=== PATIENT | female | born 1980 ===

== ENCOUNTER 2016-07-01 20:43 | Emergency (ER) | payer OTHER ==
[2016-07-01 21:01] VITALS: BP 117/78
[2016-07-01] MEDS ORDERED: Cephalexin CAP* 500 MG PO ONE (21:31)
--- NOTE | 2016-07-01 21:45 | UC ---
Skin Complaint HPI - HPI Summary HPI Summary: LEFT FOREHEAD ABOVE EYEBROW, HAD PIMPLE THAT POPPED FOUR DAYS AGO. SINCE THAT TIME HAS HAD REDNESS IN LEFT FOREHEAD WITH PURULENT DRAINAGE AT PIMPLE SITE WELL SWELLING TO LOWER EYELID. NO PAIN WITH EYE MOVEMENT. NO DISCHARGE. NO FEVER. - History of Current Complaint Chief Complaint: UCSkin Time Seen by Provider: 07/01/16 21:10 Stated Complaint: SORE ABOVE LEFT EYE Hx Obtained From: Patient Hx Last Menstrual Period: 06/30/16 Onset/Duration: Gradual Onset, Lasting Days, Still Present Skin Exposure Onset/Duration: Days Ago Onset Severity: Moderate Current Severity: Moderate Location: Discrete - LEFT FOREHEAD Character: Swelling, Redness Aggravating: Nothing Alleviating: Nothing Associated Signs & Symptoms: Positive: Drainage, Tenderness, Red Streaks. Negative: Fever, Chills, Cough, Rash Related History: Trauma - Allergy/Home Medications Allergies/Adverse Reactions: Allergies Allergy/AdvReac Type Severity Reaction Status Date / Time No Known Allergies Allergy Verified 07/01/16 20:53 Home Medications: Home Medications Copper (Iud) [Paragard IUD] 1 unit IU 07/01/16 [History] Review of Systems Constitutional: Negative Skin: Other - SWELLING REDNESS TO LEFT FOREHEAD 3CM X 3CM Eyes: Negative ENT: Negative Respiratory: Negative Cardiovascular: Negative Gastrointestinal: Negative Genitourinary: Negative Motor: Negative Neurovascular: Negative Musculoskeletal: Negative Neurological: Negative Psychological: Negative All Other Systems Reviewed And Are Negative: Yes PMH/Surg Hx/FS Hx/Imm Hx Previously Healthy: Yes - Surgical History Surgical History: Yes Surgery Procedure, Year, and Place: T&A - Family History Known Family History: Negative: Diabetes, Blood Disorder - Social History Occupation: Employed Full-time Lives: With Family Alcohol Use: Occasionally Substance Use Type: None Smoking Status (MU): Never Smoked Tobacco Physical Exam Triage Information Reviewed: Yes Appearance: Well-Appearing, No Pain Distress, Well-Nourished Vital Signs: Initial Vital Signs Temp 98.1 F 07/01/16 20:53 Pulse 83 07/01/16 20:53 Resp 18 07/01/16 20:53 BP 117/78 07/01/16 20:53 Pulse Ox 100 07/01/16 20:53 Vital Signs Reviewed: Yes Eye Exam: Normal ENT Exam: Normal ENT: Positive: Normal ENT inspection, Hearing grossly normal, Pharynx normal, TMs normal Dental Exam: Normal Neck exam: Normal Neck: Positive: Supple, Nontender Respiratory Exam: Normal Respiratory: Positive: Chest non-tender, Lungs clear, Normal breath sounds, No respiratory distress, No accessory muscle use Cardiovascular Exam: Normal Cardiovascular: Positive: RRR, No Murmur Abdominal Exam: Normal Abdomen Description: Positive: Nontender, No Organomegaly Musculoskeletal Exam: Normal Musculoskeletal: Positive: Strength Intact, ROM Intact Neurological Exam: Normal Psychological Exam: Normal Psychological: Positive: Normal Response To Family Skin: Positive: Other - CELLUITIS LEFT FOREHEAD Course/Dx - Differential Diagnoses - Skin Complaint Differential Diagnoses: Abscess, Cellulitis - Diagnoses Provider Diagnoses: CELLULITIS LEFT FOREHEAD Discharge - Discharge Plan Condition: Stable Disposition: HOME Prescriptions: Cephalexin CAP* [Keflex CAP*] 500 mg PO QID #40 cap Patient Education Materials: Cellulitis (ED) Referrals: [facility] [place] PH[facility]IAN REFERRAL [Outside] Non Staff,Doctor [Primary Care Provider] -
== END 2016-07-01 21:47 | disposition home or self-care (01) ==
LOC: UCCORT 20:43
DX: L03.211 Cellulitis of face (principal)
CPT/HCPCS: 87070; 87205; 87640; 87641; 99202; A9270-GY; G0463